=== PATIENT | female | born 1985 | race Caucasian/White ===

== ENCOUNTER 2016-06-02 22:19 | Emergency (ER) | payer OTHER ==
[~2016-06-02] VITALS: Ht 154.9 cm; Wt 74.8 kg
[2016-06-02 22:26] VITALS: BP 134/77
[2016-06-02 22:40] LABS: ADD MIUA? NO; BILIRUBIN NEGATIVE; BLOOD NEGATIVE; COLOR YELLOW ((YELLOW)); GLUCOSE (STRIP) NEGATIVE; KETONES NEGATIVE; LEUKOCYTES NEGATIVE; NITRITE NEGATIVE; PROTEIN (STRIP) NEGATIVE; SPECIFIC GRAVITY 1.005 (1.000-1.030); UCUL ADDED? NO; UROBILINOGEN 0.2 MG/DL (0.2-1.0)
[2016-06-02 22:59] LABS: HEMATOCRIT 34.1 % (36.0-46.0); MCH 29.9 PG (29.0-34.0); MCHC 33.4 G/DL (30.0-36.0); MCV 89.5 FL (83-99); MEAN PLAT.VOLUME 9.3 uM^3 (9.5-12.4); PLATELET COUNT 287 K/uL (156-360); RBC DIS.WIDTH-CV 13.2 % (11.8-14.6); RBC DIS.WIDTH-SD 41.1 % (39-53); RED BLOOD COUNT 3.81 M/uL (3.80-5.20); WHITE BLOOD COUNT 7.4 K/uL (4.1-10.2)
[2016-06-02 23:10] LABS: CHLORIDE 109 mEq/L (99-109)
[2016-06-02 23:11] LABS: SODIUM 136 mEq/L (136-147)
[2016-06-02 23:13] LABS: GLUCOSE 104 mg/dL (70-99)
[2016-06-02 23:14] LABS: ANION GAP 8 MEQ/L (2-14)
[2016-06-02 23:15] LABS: TOTAL BILIRUBIN 0.3 mg/dL (0.0-1.0)
[2016-06-02 23:16] LABS: ALKALINE PHOSPHATASE 79 IU/L (3-129)
[2016-06-02 23:17] LABS: GFR ESTIMATE (CALCULATED) > 59 mL/min/
[2016-06-02 23:18] LABS: UREA NITROGEN (BUN) 10 mg/dL (9-23)
[2016-06-02 23:20] LABS: LIPASE 26 U/L (1.0-51.0)
[2016-06-02 23:26] LABS: QUANTITATIVE HCG < 4.0 MIU/ML
== END 2016-06-02 23:40 | disposition left against medical advice (07) ==
LOC: RME 22:19 → EME 22:19 → RME 23:40
DX: R10.9 Unspecified abdominal pain (principal)
CPT/HCPCS: 80053; 81003; 83690; 84702; 85027; 99281; 99284; J1885